=== PATIENT | female | born 1950 | race Caucasian/White ===

== ENCOUNTER 2016-04-23 12:38 | Emergency (ER) | payer OTHER, MEDICARE ==
[~2016-04-23] VITALS: Ht 165.1 cm; Wt 105.0 kg
[~2016-04-23 12:38] MED LIST: ALBI1INJ SQ; LEVEMIR SQ; LOSA25TA PO; METF1000 PO; NAPR500T PO; PRAV10TA PO; ROBA500T PO
[2016-04-23 12:48] VITALS: BP 146/82; PULSE 91; RESP 16; TEMP 97.8; O2SAT 97
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
[2016-04-23 16:19] LABS: AUTOMATED NEUTROPHIL # 5.1 TH/MM3 (1.8-7.7); BASOPHIL # 0.1 TH/MM3 (0-0.2); BASOPHIL % 0.7 % (0.0-2.0); EOSINOPHIL # 0.3 TH/MM3 (0-0.4); EOSINOPHIL % 3.8 % (0.0-4.0); HEMATOCRIT 37.1 % (35.0-46.0); HEMO FLAGS DIFF FINAL; LYMPH % 34.7 % (9.0-44.0); LYMPHOCYTE # 3.1 TH/MM3 (1.0-4.8); MEAN CELL VOLUME 86.7 FL (80.0-100.0); MEAN CORPUSCULAR HGB CONC 33.5 % (32.0-36.0); MONO % 4.6 % (0.0-8.0); NEUT % 56.2 % (16.0-70.0); PLATELET COUNT 306 TH/MM3 (150-450); RED BLOOD COUNT 4.28 MIL/MM3 (4.00-5.30); RED CELL DISTRIBUTION WIDTH 12.6 % (11.6-17.2)
[2016-04-23 16:27] LABS: CHLORIDE 104 MEQ/L (98-107); SODIUM (NA) 138 MEQ/L (136-145)
[2016-04-23 16:28] LABS: POTASSIUM 5.6 MEQ/L (3.5-5.1)
[2016-04-23 16:32] LABS: ANION GAP 13 MEQ/L (5-15); BICARBONATE 21.5 MEQ/L (21.0-32.0); BLOOD UREA NITROGEN 19 MG/DL (7-18)
[2016-04-23 16:35] LABS: ALT (GPT) 49 U/L (10-53); AST (GOT) 49 U/L (15-37); GLOMERULAR FILTRATION RATE 56 ML/MIN (>89)
[2016-04-23 16:36] LABS: TOTAL BILIRUBIN ADULT 0.5 MG/DL (0.2-1.0)
[2016-04-23 16:37] LABS: ALKALINE PHOSPHATASE 107 U/L (45-117)
[2016-04-23] MEDS ORDERED: IOHEXOL 350 MG/ML 10 ML VIAL (for RAD DIAG) IV ONE (18:27)
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
[2016-04-23 19:29] VITALS: BP 180/90; PULSE 84; RESP 18; O2SAT 94
== END 2016-04-23 19:31 | disposition home or self-care (01) ==
LOC: PHED 12:38 → PHEFT 19:31
DX: S20.211D Contusion of right front wall of thorax, subsequent encounter (principal); I10 Essential (primary) hypertension; V43.52XD Car driver injured in collision with other type car in traffic accident, subsequent encounter; S30.1XXD Contusion of abdominal wall, subsequent encounter
CPT/HCPCS: 71260; 74177; 80053; 85025; 99284; Q9967